=== PATIENT | male | born 1950 | race Caucasian/White ===

== ENCOUNTER 2018-07-12 11:12 | Emergency (ER) | payer BC, OTHER ==
[~2018-07-12] VITALS: Ht 188 cm; Wt 90.3 kg
--- NOTE | 2018-07-12 11:58 | ED Cough/URI ---
General Chief Complaint: Cough/Cold/Flu Symptoms Stated Complaint: COUGHING UP BLOOD Nursing Triage Note: TO ROOM REPORTS THAT FOR LAST SEVERAL DAYS HAS BEEN COUGHING UP BLOOD. [facility]. ATTEMPT TO START IV TO DRAW BLOOD PATIENT REPORTS THAT HE IS ONLY HERE FOR A CXR Source: patient Exam Limitations: no limitations History of Present Illness Date Seen by Provider: Jul 12, 2018 Time Seen by Provider: 11:55 Initial Comments To ER with hemoptysis intermittently for the past 30 days. He's also had a sore throat. No fevers or chills. Last week he had 4 days of persistent hemoptysis. He is not on blood thinners. He only smokes one to 2 cigars per month. No history of this. He does not feel short of breath. Primary care is [facility] and they told him to come get a chest x-ray. He states he does not want any labs or CT scan Timing/Duration: constant Severity/Quality: productive cough Associated Symptoms: cough Allergies and Home Medications Allergies Coded Allergies: Penicillins (Verified Allergy, Unknown, 07/12/18) Home Medications No Active Prescriptions or Reported Meds Patient Home Medication List Home Medication List Reviewed: Yes Review of Systems Review of Systems Constitutional: see HPI; No chills, No fever EENTM: throat pain Respiratory: see HPI, cough Cardiovascular: no symptoms reported; No chest pain Genitourinary: no symptoms reported Musculoskeletal: no symptoms reported Skin: no symptoms reported Psychiatric/Neurological: No Symptoms Reported Hematologic/Lymphatic: No Symptoms Reported Past Jhuegfu-Tnsgik-Gjitii Hx Patient Social History Alcohol Use: Denies Use Recreational Drug Use: No Smoking Status: Current Someday Smoker Recent Foreign Travel: No Contact w/Someone Who Travel: No Recent Infectious Disease Expo: No Past Medical History Surgeries: Yes Orthopedic Respiratory: No Cardiac: No Neurological: No Genitourinary: No Gastrointestinal: No Musculoskeletal: No Endocrine: No HEENT: No Cancer: No Psychosocial: No Integumentary: No Physical Exam Vital Signs - First Documented 07/12/18 11:18 Temp 97.6 Pulse 75 Resp 18 B/P (MAP) 133/83 (100) Pulse Ox 97 O2 Delivery Room Air Capillary Refill : Less Than 3 Seconds Height: 6'2.00" Weight: 199lbs. oz. 90.273265dl; BMI Method:Stated General Appearance: WD/WN, no apparent distress Eyes: Bilateral Eye Normal Inspection, Bilateral Eye PERRL, Bilateral Eye EOMI HEENT: PERRL/EOMI, normal ENT inspection Neck: non-tender, full range of motion Respiratory: lungs clear, normal breath sounds, no respiratory distress, no accessory muscle use Cardiovascular: regular rate, rhythm, no murmur Neurologic/Psychiatric: alert, normal mood/affect, oriented x 3 Skin: normal color, warm/dry Progress/Results/Core Measures Suspected Sepsis Recent Fever Within 48 Hours: No Infection Criteria Present: None New/Unexplained Altered Menta: No Sepsis Screen: No Definite Risk SIRS Temperature:97.6 Pulse: 75 Respiratory Rate: 18 Blood Pressure 133 /83 Mean: 100 Results/Orders My Orders Orders - SHERRI GRIJALVA APRN Chest Pa/Lat (2 View) (07/12/18 11:53) Vital Signs/I&O 07/12/18 11:18 Temp 97.6 Pulse 75 Resp 18 B/P (MAP) 133/83 (100) Pulse Ox 97 O2 Delivery Room Air Capillary Refill : Less Than 3 Seconds Blood Pressure Mean: 100 Diagnostic Imaging Diagonstic Imaging: Xray Plain Films/CT/US/NM/MRI: chest Comments NAME: PRISCILLA [facility] REC#: [id number] PT STATUS: REG ER : 1950 PHYSICIAN: SHERRI GRIJALVA APRN ADMIT DATE: 07/12/18/ER Draft Date of Exam:07/12/18 CHEST PA/LAT (2 VIEW) Indication: Hemoptysis PA and lateral chest obtained at 1229 hrs pm. There is mass effect in the left hilum with complete atelectasis of the left upper lobe, best seen on the lateral view. Recommend chest CT for further evaluation. The right lung is clear. There is no pneumothorax or gross pleural fluid. IMPRESSION: Left perihilar mass with complete atelectasis of left upper lobe. Malignancy is not excluded. Recommend further evaluation with chest CT with contrast. Report was faxed to [facility] ER by tyler at 12:25 p.m. Dictated on workstation # [id number] Dict: 07/12/18 1219 Trans: 07/12/18 1224 TYLER [id number] Interpreted by: SOTERO SOUSA MD Electronically signed by: Departure Communication (Admissions) I discussed with him the most likely cause of hemoptysis being bronchitis but other etiologies include pulmonary embolism, Lung mass. Labs would be advised as well as a CT scan to help with this. He still states that he does not want to do this here, if his primary care provider at the [facility] wishes to have that done and he will do it through the [facility]. He agrees to sign a refusal of treatment form. Impression Primary Impression: Lung mass Disposition: HOME, SELF-CARE Condition: Stable Departure-Patient Inst. Decision time for Depature: 12:24 Patient Instructions: Coughing up Blood Add. Discharge Instructions: 1. [facility] to be [facility] as soon as possible to further evaluate this. This does have the appearance of a lung cancer. All discharge instructions reviewed with patient and/or family. Voiced understanding. Scripts Levofloxacin (Levaquin) 500 Mg Tablet 500 MG PO DAILY, #7 TAB Prov: SHERRI GRIJALVA APRN 07/12/18 SHERRI GRIJALVA APRN Jul 12, 2018 11:58
--- NOTE | 2018-07-12 12:24 | Diagnostic Imaging Report ---
Indication: Hemoptysis PA and lateral chest obtained at 1229 hrs pm. There is mass effect in the left hilum with complete atelectasis of the left upper lobe, best seen on the lateral view. Recommend chest CT for further evaluation. The right lung is clear. There is no pneumothorax or gross pleural fluid. IMPRESSION: Left perihilar mass with complete atelectasis of left upper lobe. Malignancy is not excluded. Recommend further evaluation with chest CT with contrast. Report was faxed to [facility] ER by keyon at 12:25 p.m. Dictated by: Dictated on workstation # [id number]
[2018-07-12] MEDS ORDERED: LEVO500T2 PO (12:27)
[2018-07-12 12:41] VITALS: BP 133/83
== END 2018-07-12 12:44 | disposition home or self-care (01) ==
LOC: ER 11:16
DX: R91.8 Other nonspecific abnormal finding of lung field (principal); F17.290 Nicotine dependence, other tobacco product, uncomplicated; Z88.0 Allergy status to penicillin
CPT/HCPCS: 71046